=== PATIENT | male | born 1995 | race African-American/Black ===

== ENCOUNTER 2018-04-11 18:26 | Emergency (ER) | payer OTHER ==
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
[2018-04-11] MEDS ORDERED: oxyCODONE/APAP 10/325 1 TAB TABLET PO ONE (19:15)
[2018-04-11 19:25] VITALS: BP 123/80
[2018-04-11] MEDS ORDERED: OXYC-411 PO (19:35)
== END 2018-04-11 20:15 | disposition home or self-care (01) ==
LOC: ER 18:26
DX: M79.642 Pain in left hand (principal); R00.0 Tachycardia, unspecified
CPT/HCPCS: 99283

== ENCOUNTER 2020-01-21 13:04 | Emergency (ER) | payer SELFPAY ==
[~2020-01-21] VITALS: Ht 177.8 cm; Wt 77.1 kg
[~2020-01-21 13:04] MED LIST: OXYC-411 PO
--- NOTE | 2020-01-21 14:02 | RAD ---
Examination: CHEST AP ONLY History: Shortness of breath Comparison: None. Findings: AP portable upright frontal view of the chest was obtained. The cardiomediastinal silhouette is normal. Lungs are clear. There is no pneumothorax. No pleural effusion is appreciated. No acute bone abnormality. IMPRESSION: No acute cardiopulmonary process. Electronically signed by: Terell Johnson MD (01/21/2020 2:00 PM) [id number]
--- NOTE | 2020-01-21 14:07 | PHYS DOC ---
Past History Past Medical History: No Pertinent History Past Surgical History: No Surgical History Additional Smoking Information: VAPES Alcohol Use: None Drug Use: None Adult General Chief Complaint Chief Complaint: COUGH HPI HPI Patient is a 24 year old male who presents with productive cough for the last 3 days. He states he was sent here by his work because he needs a note saying that he is safe to go back to work. He denies any fever, body aches, chest pain, shortness of breath, abdominal pain. He has no allergies. No known medical problems. He is not taking anything for symptoms at home. He is mainly here to get tested. Review of Systems Review of Systems General: Denies fever, chills, sweats, fatigue Eyes: Denies drainage, blurred vision HENT: Denies rhinorrhea, sore throat Respiratory: Denies shortness of breath, wheezing reports cough Cardiac: Denies edema, palpitations, chest pain GI: Denies abdominal pain, N/V MSK: Denies back pain, neck pain Skin: Denies rash, jaundice Neuro: Denies headache, dizziness Psychiatric: Denies SI/HI All other systems were reviewed and found to be within normal limits, except as documented in this note. Allergies Allergies Allergies Coded Allergies Type Severity Reaction Last Updated Verified No Known Drug Allergies 04/11/18 No Physical Exam Physical Exam Constitutional: Well developed, well nourished, Cooperative, NAD, non-toxic appearing HEENT: Normocephalic, atraumatic, oropharynx moist, EOMI, PERRL, no drainage from eyes, normal conjunctiva Neck: Supple, normal range of motion, no stridor Cardiovascular: RRR, 2+ radial pulses bilaterally, no edema Respiratory: CTA bilaterally, no respiratory distress, no wheezing/crackles Abdomen: Soft, nontender, nondistended, no masses Skin: Warm, dry, intact Extremities: No obvious deformities Neurologic: Alert and Oriented x3, motor and sensory function grossly normal, no focal deficits Psychologic: Normal affect, normal judgment, normal mood. No SI/HI Current Patient Data Vital Signs Vital Signs Date Time Temp Pulse Resp B/P (MAP) Pulse Ox O2 Delivery O2 Flow Rate FiO2 01/21/20 13:10 98.7 87 20 114/59 (77) 97 Room Air EKG EKG [] Radiology/Procedures Radiology/Procedures Chest x-ray normal [] Course & Med Decision Making Course & Med Decision Making Pertinent Labs and Imaging studies reviewed. (See chart for details) Patient is a previously healthy 24-year-old male who presents to the emergency room complaining of productive cough. He is requesting COVID testing and clearing for work. I have discussed with the patient that at this time I cannot rule out colitis the cause of his symptoms. I have recommended to him that he will need quarantine. Chest x-ray does not show any infiltrates which need empiric antibiotics. He is overall very well-appearing and does not have any hypoxia which would require further testing and evaluation. Patient was provided with the information for the health department to call them for possibl e drive-through testing. I have discussed with him that he should avoid grocery stores, gas stations, friends houses, family's homes. I do not recommend that he returns to work at this time patient's test results and vitals while in the ED were fully reviewed and discussed with the patient. Patient is stable and at this time does not need admission to the hospital. We have discussed strict return precautions and the importance of following up with their Primary Care Physician. Patient stated understanding and was given an opportunity to ask any questions. Dragon Disclaimer Dragon Disclaimer This electronic medical record was generated, in whole or in part, using a voice recognition dictation system. Departure Departure: Impression: Primary Impression: Cough Disposition: HOME, SELF-CARE Condition: STABLE Referrals: PCP,NO (PCP) Patient Instructions: Cough, Adult, Biht-ga-Mibp ISA SAMSON MD Jan 21, 2020 14:07
[2020-01-21 14:10] VITALS: BP 122/71
== END 2020-01-21 14:14 | disposition home or self-care (01) ==
LOC: ER 13:04
DX: R05 Cough (principal); F17.220 Nicotine dependence, chewing tobacco, uncomplicated
CPT/HCPCS: 71045; 99283

== ENCOUNTER 2021-06-06 00:33 | Emergency (ER) | payer BC, OTHER ==
[~2021-06-06] VITALS: Ht 177.8 cm; Wt 74.1 kg
[2021-06-06 00:33] VITALS: BP 114/76
[~2021-06-06 00:33] MED LIST changes: -OXYC-411 PO; +OXYC1TAB20 PO
--- NOTE | 2021-06-06 01:35 | PHYS DOC ---
Past History Past Medical History: No Pertinent History Past Surgical History: No Surgical History Alcohol Use: None Drug Use: None General Adult EDM: Chief Complaint: SORE THROAT HPI: HPI: ".. I ve got a sore throat... " Patient is a 25 year old male who presents with above hx and complaints pharyngitis for the past couple days. Patient denies any history of immunosuppression. No recent specific ill contacts. No recent travel. Normally healthy. Review of Systems: Review of Systems: Constitutional: Denies fever or chills Eyes: Denies change in visual acuity HENT: Complains of sore throat Respiratory: Denies cough or shortness of breath Cardiovascular: Denies chest pain or edema GI: Denies abdominal pain, nausea, vomiting, bloody stools or diarrhea : Denies dysuria Musculoskeletal: Denies back pain or joint pain Integument: Denies rash Neurologic: Denies headache, focal weakness or sensory changes Endocrine: Denies polyuria or polydipsia Lymphatic: Denies swollen glands Psychiatric: Denies depression or anxiety Family History: Family History: Noncontributory Current Medications: Current Meds: See nursing for home meds Allergies: Allergies: Allergies Coded Allergies Type Severity Reaction Last Updated Verified No Known Drug Allergies 04/11/18 No Physical Exam: PE: Constitutional: Well developed, well nourished, no acute distress, non-toxic appearance. [] HENT: Normocephalic, atraumatic, bilateral external ears normal, oropharynx moist, mild injection pharynx, no oral exudates, nose normal. [] Eyes: PERRLA, EOMI, conjunctiva normal, no discharge. [] Neck: Normal range of motion, no tenderness, supple, no stridor. [] Cardiovascular:Heart rate regular rhythm, no murmur [] Lungs & Thorax: Bilateral breath sounds equal at apex auscultation [] Abdomen: Bowel sounds normal, soft, no tenderness, no masses, no pulsatile ma sses. [] Skin: Warm, dry, no erythema, no rash. [] Back: No tenderness, no CVA tenderness. [] Extremities: No tenderness, no cyanosis, no clubbing, ROM intact, no edema. [] Neurologic: Alert and oriented X 3, normal motor function, normal sensory function, no focal deficits noted. [] Psychologic: Affect anxious, judgement normal, mood normal. [] Current Patient Data: Labs: Laboratory Tests Test 06/06/21 00:49 Group A Streptococcus Rapid Negative (NEGATIVE) EKG: EKG: [] Radiology/Procedures: Radiology/Procedures: [] Heart Score: C/O Chest Pain: N/A Risk Factors: Risk Factors: DM, Current or recent (<one month) smoker, HTN, HLP, family history of CAD, obesity. Risk Scores: Score 0 - 3: 2.5% MACE over next 6 weeks - Discharge Home Score 4 - 6: 20.3% MACE over next 6 weeks - Admit for Clinical Observation Score 7 - 10: 72.7% MACE over next 6 weeks - Early Invasive Strategies Course & Med Decision Making: Course & Med Decision Making Pertinent Labs and Imaging studies reviewed. (See chart for details) Patient gargle with Listerine 4 times a day. Patient take Tylenol and ibuprofen for discomfort. Patient consider use of liquid Benadryl 25 to 50 mg up to 4 times a day for drainage and topical relief of pain. Follow-up primary care. Return if any concerns. Impression: 1. Viral pharyngitis [] Joby Disclaimer: Joby Disclaimer: This electronic medical record was generated, in whole or in part, using a voice recognition dictation system. Departure Departure: Referrals: PCP,NO (PCP) Joby Disclaimer This chart was dictated in whole or in part using Voice Recognition software in a busy, high-work load, and often noisy Emergency Department environment. It may contain unintended and wholly unrecognized errors or omissions. ZULMA GOMEZ MD Jun 06, 2021 01:35
[2021-06-06] MEDS ORDERED: IBUPROFEN 600 MG TABLET. PO ONE (02:50)
[2021-06-06] MEDS ORDERED: ACETAMINOPHEN 500 MG TABLET PO ONE (02:50)
[2021-06-06] MEDS: ACETAMINOPHEN 500 MG TABLET PO ONE (02:52)
[2021-06-06] MEDS: IBUPROFEN 600 MG TABLET. PO ONE (02:52)
== END 2021-06-06 02:54 | disposition home or self-care (01) ==
LOC: ER 00:34
DX: J02.8 Acute pharyngitis due to other specified organisms (principal)
CPT/HCPCS: 87070; 87147; 87880; 99283

== ENCOUNTER 2022-02-14 21:44 | Emergency (ER) | payer SELFPAY ==
[~2022-02-14] VITALS: Ht 177.8 cm; Wt 80.0 kg
[2022-02-14 21:46] VITALS: BP 113/69
--- NOTE | 2022-02-14 21:54 | PHYS DOC ---
Past History Past Medical History: No Pertinent History Past Medical History Polysubstance abuse Past Surgical History: No Surgical History Alcohol Use: None Drug Use: None General Adult EDM: Chief Complaint: OVERDOSE HPI: HPI: ".. The last ... I remember... I was in the ... car out in front of ... the apt... I had snorted.. some street Fentanyl... was not that fucking much.. my fucking head is ... fucking killing me now... I last used about 8.pm. ".. "Can you give me something for this fucking headache...?""" Can I have a fucking smoke now..." Patient is a 26 year old male who presents with above hx and suspected narcotic overdose by response to 4 mg of nasal narcan. Pt. denies any trauma before snorting the Fentanyl. Patient denies any trauma. Patient denies any recent travel. Patient denies any specific ill contacts. Patient denies any history immunosuppression. Patient did not get flu vaccination this season. Patient s tated not get COVID vaccination. Patient does smoke tobacco and marijuana. Patient states this was recreational use and not an attempted suicide. Patient does not remember much for the last couple hours. Review of Systems: Review of Systems: Constitutional: Denies fever or chills Eyes: Denies change in visual acuity HENT: Denies nasal congestion or sore throat Respiratory: Denies cough or shortness of breath Cardiovascular: Denies chest pain or edema GI: Denies abdominal pain, nausea, vomiting, bloody stools or diarrhea : Denies dysuria Musculoskeletal: Denies back pain or joint pain Integument: Denies rash Neurologic: Complains of headache,. Denies focal weakness or sensory changes Endocrine: Denies polyuria or polydipsia Lymphatic: Denies swollen glands Psychiatric: Denies depression or anxiety Family History: Family History: Noncontributory Current Medications: Current Meds: See nursing for home meds Allergies: Allergies: Allergies Coded Allergies Type Severity Reaction Last Updated Verified No Known Drug Allergies 04/11/18 No Physical Exam: PE: Constitutional: moderate acute distress, non-toxic appearance. [] HENT: Normocephalic, atraumatic, bilateral external ears normal, oropharynx moist, no oral exudates, nose normal. [] Eyes: PERRLA, EOMI, conjunctiva normal, no discharge. [] Neck: Normal range of motion, no tenderness, supple, no stridor. [] Cardiovascular: Tachycardia heart rate regular rhythm, no murmur [] Lungs & Thorax: Bilateral breath sounds equal apex with scattered wheezes on auscultation [] Abdomen: Bowel sounds decreased, soft, no tenderness, no masses, no pulsatile masses. [] Skin: Warm, dry, no erythema, no rash. [] Back: No tenderness, no CVA tenderness. [] Extremities: No tenderness, no cyanosis, no clubbing, ROM intact, no edema. [] Neurologic: Alert and oriented X 3, normal motor function, normal sensory function, no focal deficits noted. [] Psychologic: Affect anxious, judgement normal, mood normal. [] EKG: EKG: My interpretation EKG shows a sinus tachycardia 110 bpm. No acute morphology. Time of EKG is 20 to 25 hours Patient encouraged avoid further narcotic polysubstance abuse. Patient advised to follow-up with counseling center or consider [facility] or even inpatient rehab facility. Patient at this time is not interested and entering any rehab program. Patient banding discharge. [] Radiology/Procedures: Radiology/Procedures: [[place] [address] IMAGING REPORT Signed PATIENT: JUSTINE AMBROSE ACCOUNT: [id number] : 1995 LOCATION: ER AGE: 26 SEX: M EXAM STATUS: REG ER ORD. PHYSICIAN: ZULMA GOMEZ MD REASON: dyspnea, possible drug overdose PROCEDURE: PORTABLE CHEST 1V EXAM: AP View of the chest DATE: 02/14/2022 10:30 PM INDICATION: Reason: dyspnea, possible drug overdose COMPARISON: 01/21/20 FINDINGS: The heart is not enlarged. Mediastinal and hilar contours are normal. No focal parenchymal airspace opacity. No pleural effusion or pneumothorax. IMPRESSION: 1. No radiographic evidence for acute cardiopulmonary process. Electronically signed by: Rasheed Bishop MD (02/14/2022 11:27 PM) [facility] DICTATED AND SIGNED BY: RASHEED BISHOP MD DATE: 02/14/22 1277 CC: ZULMA GOMEZ MD; PCP,NO ~ ]: 1995LOCATION: ERAGE: 26 SEX: M EXAM STATUS: REG ER ORD. PHYSICIAN: ZULMA GOMEZ MD REASON: OD, headache and neck pain PROCEDURE: CT HEAD AND CERVICAL SPINE WO [facility] Compliance Statement: One or more of the following individualized dose reduction techniques were utilized for this examination: 1. Automated exposure control 2. Adjustment of the mA and/or kV according to patient size 3. Use of iterative reconstruction technique CT HEAD AND CERVICAL SPINE WITHOUT CONTRAST History: Reason: OD, headache and neck pain / Spl. Instructions: / History: Comparison: None. Procedure: Axial images are obtained of the head from the skull base through the vertex without IV contrast. Noncontrast helical CT of the cervical spine was performed. Axial, sagittal, and coronal reconstructions were obtained. Findings: The ventricles and sulci are normal for the patient's age. No mass-effect, midline shift, hemorrhage or obvious acute infarction is identified. Basilar cisterns are patent. Bone windows demonstrate no significant calvarial abnormality. The visualized paranasal sinuses are clear. Mastoid air cells are well aerated. There is no evidence of acute fracture or acute malalignment of the cervical spine. The facet joints are intact. The vertebral body height and alignment are maintained. There are no significant degenerative changes. Disc spaces are maintained. Visualized soft tissues of the neck demonstrate no significant abnormalities. The visualized lung apices are clear. IMPRESSION: 1. No acute intracranial abnormality. 2. No acute fracture of the cervical spine. Electronically signed by: Luis Fernando Rai MD (02/14/2022 11:16 PM) [facility] DICTATED AND SIGNED BY: LUIS FERNANDO RAI MD DATE: 02/14/222310 CC: ZULMA GOMEZ MD; PCP,NO ~ Heart Score: C/O Chest Pain: No Risk Factors: Risk Factors: DM, Current or recent (<one month) smoker, HTN, HLP, family history of CAD, obesity. Risk Scores: Score 0 - 3: 2.5% MACE over next 6 weeks - Discharge Home Score 4 - 6: 20.3% MACE over next 6 weeks - Admit for Clinical Observation Score 7 - 10: 72.7% MACE over next 6 weeks - Early Invasive Strategies Course & Med Decision Making: Course & Med Decision Making Pertinent Labs and Imaging studies reviewed. (See chart for details) Patient encouraged to forward further polysubstance abuse. Recommended follow- up with counseling center or RSI. Patient this time is not interested in any rehab program. Patient follow-up primary care. Patient return if any concerns. Impression: 1. Drug Over dose- Suspect narcotic because response to Narcan 2. Positive direct screen for methamphetamine, benzos, alcohol and cocaine 3. Mild hypokalemia 3.4 4. Elevation creatinine 1.4 5. Elevated glucose 142 6. Elevated direct T-dimer 1.4 and direct 0.3 7. Elevated CK4 03 [] Dragon Disclaimer: Dragon Disclaimer: This electronic medical record was generated, in whole or in part, using a voice recognition dictation system. Departure Departure: Referrals: PCP,NO (PCP) Dragon Disclaimer This chart was dictated in whole or in part using Voice Recognition software in a busy, high-work load, and often noisy Emergency Department environment. It may contain unintended and wholly unrecognized errors or omissions. Dragon Disclaimer This chart was dictated in whole or in part using Voice Recognition software in a busy, high-work load, and often noisy Emergency Department environment. It may contain unintended and wholly unrecognized errors or omissions. ZULMA GOMEZ MD February 14, 2022 21:54
[2022-02-14] MEDS ORDERED: IV RINGERS SOLUTION,LACTATED 1,000 ML IV SCH (22:00)
[2022-02-14] MEDS ORDERED: ONDANSETRON PF 4 MG/2 ML VIAL. IVP ONE (22:00)
[2022-02-14 22:16] LABS: BASO % 1 % (0-3); EOS # 0.3 x10^3/uL (0.0-0.7); EOS % 5 % (0-3); HEMATOCRIT 49.7 % (39.0-53.0); HEMOGLOBIN 16.4 g/dL (13.0-17.5); LYMPH # 1.3 x10^3/uL (1.0-4.8); LYMPH % 24 % (24-48); MEAN CORPUSCULAR HEMOGLOBIN 30 pg (25-35); MEAN CORPUSCULAR HGB CONC 33 g/dL (31-37); MEAN CORPUSCULAR VOLUME 89 fL (79-100); MONO # 0.5 x10^3/uL (0.0-1.1); MONO % 10 % (0-9); NEUT # 3.2 x10^3uL (1.8-7.7); NEUT % 60 % (31-73); PLATELET COUNT 145 x10^3/uL (140-400); RED BLOOD COUNT 5.56 x10^6/uL (4.30-5.70); RED CELL DISTRIBUTION WIDTH 14.9 % (11.5-14.5); WHITE BLOOD COUNT 5.3 x10^3/uL (4.0-11.0)
[2022-02-14 22:25] LABS: ANION GAP 13 (6-14); BLOOD UREA NITROGEN 20 mg/dL (8-26); CALCIUM 9.4 mg/dL (8.5-10.1); CARBON DIOXIDE 28 mmol/L (21-32); CHLORIDE 104 mmol/L (98-107); CREATININE 1.4 mg/dL (0.7-1.3); GFR 73.6; GLUCOSE 142 mg/dL (70-99); POTASSIUM 3.4 mmol/L (3.5-5.1); SODIUM 145 mmol/L (136-145)
[2022-02-14 22:38] LABS: ALBUMIN 4.2 g/dL (3.4-5.0); ALK PHOS 72 U/L (46-116); ALT (SGPT) 33 U/L (16-63); AST (SGOT) 18 U/L (15-37); DIRECT BILIRUBIN 0.3 mg/dL (0.0-0.2); LIPASE 69 U/L (73-393); MAGNESIUM 2.4 mg/dL (1.8-2.4); TOTAL BILIRUBIN 1.4 mg/dL (0.2-1.0); TOTAL PROTEIN 8.2 g/dL (6.4-8.2)
[2022-02-14 23:12] LABS: BARBITURATES NEG (NEG); BENZODIAZEPINES POS (NEG); CANNABINOIDS NEG (NEG); COCAINE POS (NEG); METHADONE NEG (NEG); OPIATES NEG (NEG); PHENCYCLIDINE POS (NEG)
--- NOTE | 2022-02-14 23:18 | EKG ---
[address] [address] Test Date: 2022-02-14 Test Time: 22:25:01 Pat Name: JUSTINE AMBROSE Department: Room: Gender: M Spout Liner: : 1995 Requested By: ZULMA GOMEZ Order Number: [id number] Reading MD: Osei Sr Measurements Intervals [place] Rate: 110 P: 42 CO: 124 QRS: 47 QRSD: 84 T: 31 QT: 310 QTc: 425 Interpretive Statements SINUS TACHYCARDIA Electronically Signed On 02-16-2022 14:48:50 CDT by Osei Sr
--- NOTE | 2022-02-14 23:19 | RAD ---
[employer] Compliance Statement: One or more of the following individualized dose reduction techniques were utilized for this examinat ion: 1. Automated exposure control 2. Adjustment of the mA and/or kV according to patient size 3. Use of iterative reconstruction technique CT HEAD AND CERVICAL SPINE WITHOUT CONTRAST History: Reason: OD, headache and neck pain / Spl. Instructions: / History: Comparison: None. Procedure: Axial images are obtained of the head from the skull base through the vertex without IV co ntrast. Noncontrast helical CT of the cervical spine was performed. Axial, sagittal, and coronal rec onstructions were obtained. Findings: The ventricles and sulci are normal for the patient's age. No mass-effect, midline shift, hemorrhage or obvious acute infarction is identified. Basilar cistern s are patent. Bone windows demonstrate no significant calvarial abnormality. The visualized paranasal sinuses are clear. Mastoid air cells are well aerated. There is no evidence of acute fracture or acute malalignment of the cervical spine. The facet joints are intact. The vertebral body height and alignment are maintained. There are no sig nificant degenerative changes. Disc spaces are maintained. Visualized soft tissues of the neck demonstrate no significant abnormalities. The visualized lung api giovanny are clear. IMPRESSION: 1. No acute intracranial abnormality. 2. No acute fracture of the cervical spine. Electronically signed by: Luis Fernando Rai MD (02/14/2022 11:16 PM) [facility]
[2022-02-14 23:26] LABS: AMPHETAMINE/METHAMPHETAMINE POS (NEG)
--- NOTE | 2022-02-14 23:30 | RAD ---
EXAM: AP View of the chest DATE: 02/14/2022 10:30 PM INDICATION: Reason: dyspnea, possible drug overdose COMPARISON: 01/21/20 FINDINGS: The heart is not enlarged. Mediastinal and hilar contours are normal. No focal parenchymal airspace opacity. No pleural effusion or pneumothorax. IMPRESSION: 1. No radiographic evidence for acute cardiopulmonary process. Electronically signed by: Rasheed Shane MD (02/14/2022 11:27 PM) [facility]
[2022-02-14 23:33] LABS: BACTERIA,URINE FEW /HPF (0-FEW); CLARITY,URINE CLEAR; COLOR,URINE YELLOW; GLUCOSE,URINE NEG (NEG); HYALINE CASTS, URINE FEW /HPF; NITRITE,URINE NEG (NEG); SQUAMOUS EPITHELIAL CELL,UR MOD /LPF
== END 2022-02-14 23:52 | disposition home or self-care (01) ==
LOC: ER 21:44
DX: T50.991A Poisoning by other drugs, medicaments and biological substances, accidental (unintentional), initial encounter (principal); E87.6 Hypokalemia; R73.9 Hyperglycemia, unspecified; R79.1 Abnormal coagulation profile; R79.89 Other specified abnormal findings of blood chemistry; F15.90 Other stimulant use, unspecified, uncomplicated; F14.90 Cocaine use, unspecified, uncomplicated; F19.90 Other psychoactive substance use, unspecified, uncomplicated; Y92.89 Other specified places as the place of occurrence of the external cause
CPT/HCPCS: 36415; 70450; 71045; 72125; 80048; 80076; 80307; 81001; 82550; 83690; 83735; 83880; 84443; 84484; 85025; 85610; 85730; 93005; 96374; 99285; J2405